=== PATIENT | male | born 1960 | race Two or more races ===

== ENCOUNTER 2017-05-21 08:13 | Day surgery (SDC) | payer OTHER | END 2017-05-21 12:25 | disposition home or self-care (01) | LOC: AMB-ENDOS 08:13 → CIR.AMB 14:00 | DX: D12.3 Benign neoplasm of transverse colon (principal); K62.1 Rectal polyp; K57.30 Diverticulosis of large intestine without perforation or abscess without bleeding; Z12.11 Encounter for screening for malignant neoplasm of colon ==

== ENCOUNTER 2021-09-08 11:15 | Inpatient (IN) | payer OTHER ==
[~2021-09-08] VITALS: Ht 177.8 cm; Wt 82.1 kg
[2021-09-08] MEDS ORDERED: TAMS0.4C PO (14:19)
[2021-09-08] MEDS ORDERED: FOLIC ACID0.8 M1 PO (14:20)
[2021-09-08] MEDS ORDERED: D3 + K2 DOTS 11 EACH PO (14:20)
[2021-09-08] MEDS ORDERED: ALLOPURINOL300 MG PO (14:20)
[2021-09-08] MEDS ORDERED: Q-SORB CO Q-101 EACH PO (14:21)
[2021-09-13] MEDS ORDERED: [UNRECOGNIZED DRUG - CODE] (08:51)
== END 2021-09-16 12:31 | disposition home or self-care (01) | DRG 331 ==
LOC: O/R 09-13 05:30 → SURH 09-13 07:00
PROVIDERS: ADMIT Colon & Rectal Surgery; ATTEND Colon & Rectal Surgery
PROC: 0DBP4ZZ Excision of Rectum, Percutaneous Endoscopic Approach (ICD-10-PCS; 2021-09-13)
PROC: 0DBN4ZZ Excision of Sigmoid Colon, Percutaneous Endoscopic Approach (ICD-10-PCS; 2021-09-13)
PROC: 0DTN4ZZ Resection of Sigmoid Colon, Percutaneous Endoscopic Approach (ICD-10-PCS; principal; 2021-09-13 07:00)
DX: K57.20 Diverticulitis of large intestine with perforation and abscess without bleeding (principal); R59.0 Localized enlarged lymph nodes; K64.4 Residual hemorrhoidal skin tags; K59.09 Other constipation; K21.9 Gastro-esophageal reflux disease without esophagitis; Z87.891 Personal history of nicotine dependence; Z43.3 Encounter for attention to colostomy; E80.4 Gilbert syndrome